=== PATIENT | male | born 1935 | race Caucasian/White ===

== ENCOUNTER → 2017-04-30 | Emergency (ER) | payer MEDICARE, OTHER ==
[~2017-04-30] VITALS: Ht 177.8 cm; Wt 109.2 kg
[2017-04-30 11:14] VITALS: BP 160/79
[2017-04-30 12:27] LABS: CLARITY,URINE SLIGHTLY CLOUDY (Clear); COLOR,URINE YELLOW (Yellow); GLUCOSE, URINE NEGATIVE (Neg); KETONES,URINE NEGATIVE (Neg); LEUKOCYTE ESTERASE ,URINE SMALL (Neg); NITRITES, URINE NEGATIVE (Neg); OCCULT BLOOD,URINE LARGE (Neg); PROTEIN,URINE 30 mg/dl (Neg); UROBILINOGEN,URINE 0.2 E.U/dL (0.2-1.0)
[2017-04-30 12:35] LABS: UA COLLECTION TYPE FOLEY CATH
[2017-04-30 12:36] LABS: BACTERIA,URINE FEW /HPF (Neg); MUCUS STRANDS NONE SEEN /LPF (Neg); RBC,URINE 20-50 /HPF (0-2); SQUAMOUS EPITHELIAL CELL,UR FEW /LPF (FEW)
== END | disposition home or self-care (01) ==
LOC: ER 08:33
DX: R33.9 Retention of urine, unspecified (principal); I25.10 Atherosclerotic heart disease of native coronary artery without angina pectoris; E11.9 Type 2 diabetes mellitus without complications; F17.200 Nicotine dependence, unspecified, uncomplicated; Z95.5 Presence of coronary angioplasty implant and graft; Z98.890 Other specified postprocedural states; Z88.1 Allergy status to other antibiotic agents; Z88.8 Allergy status to other drugs, medicaments and biological substances
CPT/HCPCS: 51702; 81001; 87088; 99285; A4315; A4353

== ENCOUNTER 2017-05-07 07:34 | Emergency (ER) | payer MEDICARE, OTHER ==
[~2017-05-07] VITALS: Ht 177.8 cm; Wt 106.8 kg
[2017-05-07 08:41] VITALS: BP 154/76
[2017-05-09] MEDS ORDERED: ZIPR20CA2 PO (12:29)
[2017-05-09] MEDS ORDERED: CEPH500C5 PO (12:42)
[2017-05-09] MEDS ORDERED: FLO0.4C PO (12:42)
== END 2017-05-07 08:42 | disposition home or self-care (01) ==
LOC: ER 07:35
DX: Z46.6 Encounter for fitting and adjustment of urinary device (principal); I25.10 Atherosclerotic heart disease of native coronary artery without angina pectoris; E11.9 Type 2 diabetes mellitus without complications; F17.210 Nicotine dependence, cigarettes, uncomplicated; Z98.62 Peripheral vascular angioplasty status; Z98.890 Other specified postprocedural states; Z88.8 Allergy status to other drugs, medicaments and biological substances
CPT/HCPCS: 99281; 99284

== ENCOUNTER 2017-05-19 14:47 | Emergency (ER) | payer MEDICARE, OTHER ==
[~2017-05-19] VITALS: Ht 177.8 cm; Wt 109.0 kg
[~2017-05-19 14:47] MED LIST: CEPH500C5 PO; FLO0.4C PO; ZIPR20CA2 PO
[2017-05-19 16:16] VITALS: BP 164/66
[2017-05-19] MEDS ORDERED: FLO0.4C PO (16:17)
== END 2017-05-19 16:24 | disposition home or self-care (01) ==
LOC: ER 14:47
DX: Z00.00 Encounter for general adult medical examination without abnormal findings (principal); E11.9 Type 2 diabetes mellitus without complications; I25.10 Atherosclerotic heart disease of native coronary artery without angina pectoris; Z88.8 Allergy status to other drugs, medicaments and biological substances
CPT/HCPCS: 99283

== ENCOUNTER 2018-11-23 11:26 | Outpatient (CLI) | payer MEDICARE, OTHER ==
[2018-11-23] VITALS (26 sets, daily range): BP systolic 91–154; BP diastolic 57–93
[~2018-11-23 11:26] MED LIST changes: +AMIO100T PO; +AMLO10TA13 PO; +ATOR40TA72 PO; +CEPH250T PO; -CEPH500C5 PO; +CLOP75TA35 PO; +LISI40TA4 PO; +METF-438 PO; +OCUVITE PO; -ZIPR20CA2 PO
== END 2018-11-23 23:59 | disposition home or self-care (01) ==
LOC: CARD DIAG 11:26
PROVIDERS: ATTEND Internal Medicine Cardiovascular Disease
DX: R06.02 Shortness of breath (principal); R42 Dizziness and giddiness; R55 Syncope and collapse; I10 Essential (primary) hypertension; E11.9 Type 2 diabetes mellitus without complications; F17.200 Nicotine dependence, unspecified, uncomplicated
CPT/HCPCS: 93660

== ENCOUNTER 2019-04-02 11:41 | Emergency (ER) | payer MEDICARE, OTHER ==
[~2019-04-02] VITALS: Ht 172.7 cm; Wt 90.0 kg
[2019-04-02 12:08] LABS: CLARITY,URINE TURBID (Clear); COLOR,URINE YELLOW (Yellow); GLUCOSE, URINE NEGATIVE (Neg); KETONES,URINE NEGATIVE (Neg); LEUKOCYTE ESTERASE ,URINE SMALL (Neg); NITRITES, URINE NEGATIVE (Neg); OCCULT BLOOD,URINE LARGE (Neg); PROTEIN,URINE 100 mg/dl (Neg); UROBILINOGEN,URINE 0.2 E.U/dL (0.2-1.0)
[2019-04-02 12:14] LABS: UA COLLECTION TYPE CLN CATCH MIDSTREAM
[2019-04-02 12:19] LABS: MUCUS STRANDS NONE SEEN /LPF (Neg); SQUAMOUS EPITHELIAL CELL,UR MODERATE /LPF (FEW); TRANSITIONAL EPI CELLS,URINE FEW /HPF
[2019-04-02 12:20] LABS: RBC,URINE TNTC /HPF (0-2); WBC CLUMPS,URINE FEW /HPF (NEGATIVE); WBC,URINE TNTC /HPF (0-4)
[2019-04-02 12:21] LABS: BACTERIA,URINE FEW /HPF (Neg)
[2019-04-02] MEDS ORDERED: cephalexin 250mg capsule PO ONE (12:50)
[2019-04-02] MEDS ORDERED: CEPH500C5 PO (13:16)
[2019-04-02 13:56] VITALS: BP 143/65
== END 2019-04-02 13:58 | disposition home or self-care (01) ==
LOC: ER 11:42
DX: N39.0 Urinary tract infection, site not specified (principal); I25.10 Atherosclerotic heart disease of native coronary artery without angina pectoris; E11.9 Type 2 diabetes mellitus without complications; Z98.61 Coronary angioplasty status; Z98.890 Other specified postprocedural states; Z88.8 Allergy status to other drugs, medicaments and biological substances; Z79.2 Long term (current) use of antibiotics; Z79.899 Other long term (current) drug therapy
CPT/HCPCS: 81001; 87077; 87088; 87186; 99283

== ENCOUNTER 2020-01-20 11:23 | Emergency (ER) | payer MEDICARE, OTHER ==
[~2020-01-20] VITALS: Ht 177.8 cm; Wt 112.0 kg
[~2020-01-20 11:23] MED LIST changes: -CEPH250T PO; +CEPH500C5 PO
[2020-01-20 12:32] VITALS: BP 184/76
[2020-01-20] MEDS ORDERED: TETanus/Pertussis (Acell)/Diphther VAC/PF (Tdap-Adult) 0.5ml syringe IMVAC ONE (12:45)
[2020-01-20] MEDS ORDERED: LIDOcaine 1% W/epiNEPHrine 1:200,000 10ml vial IJ ONE (12:45)
[2020-01-20] MEDS ORDERED: LIDOcaine 1% w/epiNEPHrine 1:200,000 30ml vial IJ ONE (12:55)
[2020-01-20] MEDS ORDERED: DOXY100C2 PO (13:41)
== END 2020-01-20 13:57 | disposition home or self-care (01) ==
LOC: ER 11:24
DX: S61.012A Laceration without foreign body of left thumb without damage to nail, initial encounter (principal); S61.002A Unspecified open wound of left thumb without damage to nail, initial encounter; I25.10 Atherosclerotic heart disease of native coronary artery without angina pectoris; E11.9 Type 2 diabetes mellitus without complications; Z98.61 Coronary angioplasty status; Z98.890 Other specified postprocedural states; Z88.8 Allergy status to other drugs, medicaments and biological substances; Z79.899 Other long term (current) drug therapy; X58.XXXA Exposure to other specified factors, initial encounter; Y93.89 Activity, other specified; Y92.89 Other specified places as the place of occurrence of the external cause; Y99.8 Other external cause status
CPT/HCPCS: 64450; 73140; 99283; 99284

== ENCOUNTER 2020-02-25 09:35 | Outpatient (CLI) | payer MEDICARE, OTHER ==
[2020-02-25] MEDS ORDERED: LIDOcaine 2% 5ml jelly ONE (10:23)
== END 2020-02-25 23:59 | disposition home or self-care (01) ==
LOC: WOUND CARE 09:35
PROVIDERS: ATTEND Nurse Practitioner Family
DX: S61.002A Unspecified open wound of left thumb without damage to nail, initial encounter (principal); E11.622 Type 2 diabetes mellitus with other skin ulcer; L98.492 Non-pressure chronic ulcer of skin of other sites with fat layer exposed; I25.10 Atherosclerotic heart disease of native coronary artery without angina pectoris; F17.200 Nicotine dependence, unspecified, uncomplicated; Z98.61 Coronary angioplasty status; Z98.890 Other specified postprocedural states; Z79.899 Other long term (current) drug therapy; Z79.84 Long term (current) use of oral hypoglycemic drugs; X58.XXXA Exposure to other specified factors, initial encounter; Y93.89 Activity, other specified; Y92.89 Other specified places as the place of occurrence of the external cause; Y99.8 Other external cause status
CPT/HCPCS: 82948; 97597

== ENCOUNTER 2020-04-02 16:09 | Outpatient (CLI) | payer MEDICARE, OTHER ==
[2020-04-02 16:46] LABS: TOTAL HEMOGLOBIN 14.6 G/dl (14.0-18.0)
== END 2020-04-02 23:59 | disposition home or self-care (01) ==
LOC: RT 16:09
PROVIDERS: ATTEND Internal Medicine Cardiovascular Disease
DX: R94.2 Abnormal results of pulmonary function studies (principal); I48.91 Unspecified atrial fibrillation; Z79.899 Other long term (current) drug therapy
CPT/HCPCS: 71046; 85018; 94010; 94727; 94729

== ENCOUNTER 2020-09-17 08:51 | Day surgery (SDC) | payer MEDICARE, OTHER ==
[2020-09-16 12:33] LABS: BASOPHILS % (AUTO) 0.5 % (0-1); EOSINOPHILS # (AUTO) 0.2 X10'3 (0-0.9); EOSINOPHILS % (AUTO) 3.2 % (0-6); HEMATOCRIT 39.2 % (42.0-52.0); LYMPHOCYTES # (AUTO) 1.3 X10'3 (1.1-4.8); LYMPHOCYTES % (AUTO) 24.5 % (21-51); MEAN CORPUSCULAR HEMOGLOBIN 30.5 PG (27.0-31.0); MEAN CORPUSCULAR HGB CONC 33.2 g/dL (33.0-36.5); MEAN PLATELET VOLUME 9.5 FL (7.4-10.4); MONOCYTES # (AUTO) 0.5 X10'3 (0-0.9); NEUTROPHILS # (AUTO) 3.3 X10'3 (1.8-7.7); NEUTROPHILS % (AUTO) 62.8 % (42-75); PLATELET COUNT 176 X10'3 (140-440); RED BLOOD COUNT 4.26 X10'6 (4.70-6.10); RED CELL DISTRIBUTION WIDTH 14.8 % (11.5-14.5); WHITE BLOOD COUNT 5.2 X10'3 (4.5-11.0)
[2020-09-16 12:41] LABS: ALBUMIN 3.6 G/DL (3.4-5.0); ANION GAP 10 (8-16); BLOOD UREA NITROGEN 17 MG/DL (7-18); CALCIUM 8.8 MG/DL (8.5-10.1); CHLORIDE 104 MMOL/L (99-107); CREATININE 1.31 MG/DL (0.60-1.10); GLUCOSE 175 MG/DL (70-104); POTASSIUM 4.5 MMOL/L (3.5-5.1); SODIUM 141 MMOL/L (135-145); TOTAL CARBON DIOXIDE 27.3 MMOL/L (24-32); eGFR 52 ML/MIN
[2020-09-16 12:43] LABS: PARTIAL THROMBOPLASTIN TIME 28 SECONDS (22-32)
[2020-09-17] VITALS (14 sets, daily range): BP systolic 120–171; BP diastolic 45–87
[~2020-09-17] VITALS: Ht 177.8 cm; Wt 114.8 kg
[~2020-09-17 08:51] MED LIST changes: -CEPH500C5 PO; +CLOP75TA34 PO; -CLOP75TA35 PO; +LISI40TA13 PO; -LISI40TA4 PO
[2020-09-17] MEDS ORDERED: diphenhydrAMINE 25mg capsule PO PRN (09:05)
[2020-09-17] MEDS ORDERED: sodium bicarbonate (8.4%) inj. 150 ML in dextrose 5%-water 1,000 ML IV ONE ×2 (09:05→09:10)
[2020-09-17] MEDS ORDERED: LORazepam 0.5 MG tablet PO PRN (09:05)
[2020-09-17] MEDS ORDERED: LIDOcaine/PRILOcaine 5gm cream TP ONE (09:10)
[2020-09-17] MEDS ORDERED: RIVA20TA PO (09:31)
[2020-09-17] MEDS ORDERED: LOP25T PO (09:31)
[2020-09-17] MEDS ORDERED: aloe vera PO (09:31)
[2020-09-17] MEDS ORDERED: CRAN405C PEG (09:31)
[2020-09-17] MEDS ORDERED: DUTA0.5C40 PO (09:31)
[2020-09-17] MEDS ORDERED: VIT1CAPS46 PO (09:31)
[2020-09-17] MEDS ORDERED: OMEP-50 PO (09:31)
[2020-09-17] MEDS ORDERED: OMEG1CAP46 PO (09:31)
[2020-09-17] MEDS ORDERED: midazolam 1 mg/ML 2ml injection ONE (09:50)
[2020-09-17] MEDS ORDERED: nitroGLYCERIN-Tridil 50MG/D5W 250 ML IV ONE (09:50)
[2020-09-17] MEDS ORDERED: verapamil 2.5 mg/ml inj IV ONE (09:50)
[2020-09-17] MEDS ORDERED: iohexol 350MG/ML 100ml bottle IV ONE ×3 (09:51→12:21)
[2020-09-17] MEDS ORDERED: fentaNYL/PF 50MCG/1 ML 2ML syringe ONE (09:51)
[2020-09-17] MEDS ORDERED: LIDOcaine 1% (10mg/ml)w/preservative injection 20ml MDV ONE (09:51)
[2020-09-17] MEDS ORDERED: heparin 1,000unit/ml 10ml vial 10 ML ONE (09:51)
[2020-09-17] MEDS ORDERED: iohexol 350 MG/ML 50ML vial IV ONE (09:51)
[2020-09-17] MEDS ORDERED: pneumococcal 23-VAL P-sac vacc 25 mcg/0.5ml vial IMVAC ONE (10:25)
[2020-09-17] MEDS ORDERED: heparin 25,000 UNIT/250ml bag 250 ML IV ONE (11:57)
[2020-09-17] MEDS ORDERED: clopidogrel 300mg tablet ONE (12:38)
[2020-09-17 14:28] LABS: ISTAT HGB ART 12.2 g/dl (14.0-18.0); ISTAT Hct ART 36 %PCV (42-52); ISTAT O2 SATURATION ARTERIAL 98 % (95-98); ISTAT SOURCE ART
[2020-09-17 16:20] LABS: ISTAT Hct MIX 36 %PCV (42-52); ISTAT O2 SATURATION MIX VENOUS 77 % (60-80); ISTAT SOURCE VEN
== END 2020-09-17 19:55 | disposition home or self-care (01) ==
LOC: SSTAY O 08:51
PROVIDERS: ATTEND Internal Medicine Cardiovascular Disease
DX: R94.39 Abnormal result of other cardiovascular function study (principal); I25.10 Atherosclerotic heart disease of native coronary artery without angina pectoris; R55 Syncope and collapse; I35.0 Nonrheumatic aortic (valve) stenosis; I10 Essential (primary) hypertension; E78.5 Hyperlipidemia, unspecified; R06.02 Shortness of breath; R53.83 Other fatigue; I47.1 Supraventricular tachycardia; I48.91 Unspecified atrial fibrillation; E11.9 Type 2 diabetes mellitus without complications
CPT/HCPCS: 36415; 80048; 82803; 82948; 85014; 85025; 85347; 85610; 85730; 93005; 93460; 99152; 99153; C1725; C1751; C1769; C1874; C1894; C9600; J1644; J2001; J2250; J3010; Q0163; Q9967; A4620; A5120; A6258; J3490

== ENCOUNTER 2020-10-25 11:33 | Emergency (ER) | payer MEDICARE, OTHER ==
[~2020-10-25] VITALS: Ht 177.8 cm; Wt 110.9 kg
[~2020-10-25 11:33] MED LIST changes: -AMLO10TA13 PO; -CLOP75TA34 PO; +CRAN405C PEG; +DUTA0.5C40 PO; +LOP25T PO; +OMEG1CAP46 PO; +OMEP-50 PO; +RIVA20TA PO; +VIT1CAPS46 PO; +aloe vera PO
[2020-10-25] MEDS ORDERED: normal saline 1000ML IV soln IVB ONE (12:30)
[2020-10-25 12:50] LABS: BASOPHILS % (AUTO) 0.6 % (0-1); EOSINOPHILS % (AUTO) 0.8 % (0-6); HEMATOCRIT 38.5 % (42.0-52.0); LYMPHOCYTES # (AUTO) 0.8 X10'3 (1.1-4.8); LYMPHOCYTES % (AUTO) 17.4 % (21-51); MEAN CORPUSCULAR HEMOGLOBIN 30.9 PG (27.0-31.0); MEAN CORPUSCULAR HGB CONC 33.9 g/dL (33.0-36.5); MEAN CORPUSCULAR VOLUME 91.2 FL (78-98); MEAN PLATELET VOLUME 9.3 FL (7.4-10.4); MONOCYTES # (AUTO) 0.4 X10'3 (0-0.9); MONOCYTES % (AUTO) 7.7 % (2-12); NEUTROPHILS # (AUTO) 3.6 X10'3 (1.8-7.7); NEUTROPHILS % (AUTO) 73.5 % (42-75); PLATELET COUNT 161 X10'3 (140-440); RED BLOOD COUNT 4.22 X10'6 (4.70-6.10); RED CELL DISTRIBUTION WIDTH 15.5 % (11.5-14.5); WHITE BLOOD COUNT 4.9 X10'3 (4.5-11.0)
[2020-10-25 13:00] LABS: ALANINE AMINOTRANSFERASE 24 U/L (12-78); ALBUMIN 3.6 G/DL (3.4-5.0); ALBUMIN/GLOBULIN RATIO 0.9 (1.1-1.5); ALKALINE PHOSPHATASE 68 IU/L (46-116); ANION GAP 10 (8-16); ASPARTATE AMINO TRANSFERASE 27 U/L (10-37); BILIRUBIN,TOTAL 0.8 MG/DL (0.1-1.0); BLOOD UREA NITROGEN 17 MG/DL (7-18); BUN/CREATININE RATIO 14.2 (5.4-32.0); CALCIUM 8.8 MG/DL (8.5-10.1); CHLORIDE 104 MMOL/L (99-107); GLUCOSE 152 MG/DL (70-104); POTASSIUM 4.4 MMOL/L (3.5-5.1); SODIUM 138 MMOL/L (135-145); TOTAL PROTEIN 7.4 G/DL (6.4-8.2); eGFR 58 ML/MIN
[2020-10-25] MEDS ORDERED: meclizine 12.5mg tablet PO ONE (13:20)
[2020-10-25 13:45] LABS: CLARITY,URINE CLEAR (Clear); COLOR,URINE YELLOW (Yellow); GLUCOSE, URINE NEGATIVE (Neg); KETONES,URINE NEGATIVE (Neg); LEUKOCYTE ESTERASE ,URINE NEGATIVE (Neg); NITRITES, URINE NEGATIVE (Neg); OCCULT BLOOD,URINE MODERATE (Neg); PROTEIN,URINE NEGATIVE (Neg); UROBILINOGEN,URINE 0.2 E.U/dL (0.2-1.0)
[2020-10-25] MEDS ORDERED: normal saline 1000ml 1,000 ML IV STA (13:49)
[2020-10-25 13:58] LABS: UA COLLECTION TYPE CLN CATCH MIDSTREAM
[2020-10-25 14:11] LABS: SQUAMOUS EPITHELIAL CELL,UR FEW /LPF (FEW)
[2020-10-25 14:12] LABS: BACTERIA,URINE FEW /HPF (Neg); WBC,URINE 0-4 /HPF (0-4)
[2020-10-25] MEDS ORDERED: MECL-159 PO (14:53)
[2020-10-25 15:12] VITALS: BP 165/68
== END 2020-10-25 15:14 | disposition home or self-care (01) ==
LOC: ER 11:34
DX: E86.0 Dehydration (principal); R11.2 Nausea with vomiting, unspecified; R51.9 Headache, unspecified; R42 Dizziness and giddiness; I25.10 Atherosclerotic heart disease of native coronary artery without angina pectoris; E11.9 Type 2 diabetes mellitus without complications; Z87.440 Personal history of urinary (tract) infections; F17.210 Nicotine dependence, cigarettes, uncomplicated; Z98.890 Other specified postprocedural states; Z95.5 Presence of coronary angioplasty implant and graft; Z88.8 Allergy status to other drugs, medicaments and biological substances; Z79.899 Other long term (current) drug therapy; Z91.018 Allergy to other foods
CPT/HCPCS: 36415; 70450; 80053; 81001; 82948; 85025; 93005; 96360; 96361; 99285; J7030; J8597

== ENCOUNTER 2021-04-03 07:00 | Emergency (ER) | payer MEDICARE, OTHER ==
[~2021-04-03] VITALS: Ht 177.8 cm; Wt 114.1 kg
[~2021-04-03 07:00] MED LIST changes: +MECL-159 PO
[2021-04-03 08:32] LABS: BASOPHILS % (AUTO) 0.3 % (0-1); EOSINOPHILS # (AUTO) 0.2 X10'3 (0-0.9); EOSINOPHILS % (AUTO) 3.2 % (0-6); HEMATOCRIT 38.6 % (42.0-52.0); LYMPHOCYTES # (AUTO) 0.9 X10'3 (1.1-4.8); LYMPHOCYTES % (AUTO) 12.7 % (21-51); MEAN CORPUSCULAR HGB CONC 33.7 g/dL (33.0-36.5); MEAN CORPUSCULAR VOLUME 92.1 FL (78-98); MEAN PLATELET VOLUME 10.1 FL (7.4-10.4); MONOCYTES # (AUTO) 0.5 X10'3 (0-0.9); MONOCYTES % (AUTO) 7.1 % (2-12); NEUTROPHILS # (AUTO) 5.7 X10'3 (1.8-7.7); NEUTROPHILS % (AUTO) 76.7 % (42-75); PLATELET COUNT 155 X10'3 (140-440); RED CELL DISTRIBUTION WIDTH 15.2 % (11.5-14.5); WHITE BLOOD COUNT 7.4 X10'3 (4.5-11.0)
[2021-04-03 08:50] LABS: ALANINE AMINOTRANSFERASE 24 U/L (12-78); ALBUMIN 3.6 G/DL (3.4-5.0); ALBUMIN/GLOBULIN RATIO 0.9 (1.1-1.5); ALKALINE PHOSPHATASE 67 IU/L (46-116); ANION GAP 10 (8-16); ASPARTATE AMINO TRANSFERASE 18 U/L (10-37); BILIRUBIN,TOTAL 0.6 MG/DL (0.1-1.0); BLOOD UREA NITROGEN 16 MG/DL (7-18); BUN/CREATININE RATIO 13.4 (5.4-32.0); CALCIUM 8.9 MG/DL (8.5-10.1); CHLORIDE 106 MMOL/L (99-107); CREATININE 1.19 MG/DL (0.60-1.10); GLUCOSE 173 MG/DL (70-104); POTASSIUM 3.9 MMOL/L (3.5-5.1); SODIUM 141 MMOL/L (135-145); TOTAL CARBON DIOXIDE 25.3 MMOL/L (24-32); TOTAL PROTEIN 7.4 G/DL (6.4-8.2); eGFR 58 ML/MIN
--- NOTE | 2021-04-03 09:15 | NUR ---
CALLED DR. TRUONG FOR PACEMAKER INFO. PT HAS BIOTRONIC PACEMAKER, CALLED RE[facility] FRANCIS[facility]FOR[facility]
[2021-04-03 09:28] LABS: D-DIMER 0.75 MG/L FEU (0-0.50)
[2021-04-03] MEDS ORDERED: furosemide 10 MG/1 ML 10ml inj IV ONE (09:40)
[2021-04-03 10:12] VITALS: BP 175/74
--- NOTE | 2021-04-03 10:15 | NUR ---
BIOTRONIK TECH AT BEDSIDE
--- NOTE | 2021-04-03 10:30 | NUR ---
PT AMBULATED WITH STEADY GAIT TO/FROM RESTROOM WITHOUT INCIDENT.
[2021-04-03] MEDS ORDERED: FURO-150 PO (11:43)
== END 2021-04-03 12:22 | disposition home or self-care (01) ==
LOC: ER 07:00
DX: I50.9 Heart failure, unspecified (principal); Z20.822 Contact with and (suspected) exposure to COVID-19; I71.4 Abdominal aortic aneurysm, without rupture; R06.02 Shortness of breath; R05.9 Cough, unspecified; I48.91 Unspecified atrial fibrillation; I25.10 Atherosclerotic heart disease of native coronary artery without angina pectoris; E11.9 Type 2 diabetes mellitus without complications; Z87.440 Personal history of urinary (tract) infections; Z95.0 Presence of cardiac pacemaker; Z88.8 Allergy status to other drugs, medicaments and biological substances; Z79.899 Other long term (current) drug therapy
CPT/HCPCS: 36415; 71045; 80053; 83880; 84484; 85025; 85379; 87635; 93005; 93306; 96374; 99285; C9803; J1940

== ENCOUNTER 2021-04-13 15:29 | Emergency (ER) | payer MEDICARE ==
[~2021-04-13] VITALS: Ht 177.8 cm; Wt 114.1 kg
[~2021-04-13 15:29] MED LIST changes: +FURO-150 PO
[2021-04-13 15:49] LABS: CLARITY,URINE BLOODY (Clear); COLOR,URINE RED (Yellow); UA COLLECTION TYPE CLN CATCH MIDSTREAM
[2021-04-13 15:57] LABS: RBC,URINE TNTC /HPF (0-2)
[2021-04-13 16:00] LABS: BACTERIA,URINE NONE SEEN /HPF (Neg); MUCUS STRANDS NONE SEEN /LPF (Neg); SQUAMOUS EPITHELIAL CELL,UR NONE SEEN /LPF (FEW); WBC,URINE 0-4 /HPF (0-4)
[2021-04-13 16:03] LABS: BASOPHILS % (AUTO) 0.6 % (0-1); EOSINOPHILS # (AUTO) 0.1 X10'3 (0-0.9); EOSINOPHILS % (AUTO) 2.2 % (0-6); HEMATOCRIT 39.4 % (42.0-52.0); HEMOGLOBIN 13.3 g/dl (14.0-17.9); LYMPHOCYTES # (AUTO) 1.4 X10'3 (1.1-4.8); LYMPHOCYTES % (AUTO) 23.8 % (21-51); MEAN CORPUSCULAR HEMOGLOBIN 30.8 PG (27.0-31.0); MEAN CORPUSCULAR HGB CONC 33.8 g/dL (33.0-36.5); MEAN CORPUSCULAR VOLUME 91.1 FL (78-98); MEAN PLATELET VOLUME 9.6 FL (7.4-10.4); MONOCYTES # (AUTO) 0.6 X10'3 (0-0.9); NEUTROPHILS # (AUTO) 3.8 X10'3 (1.8-7.7); NEUTROPHILS % (AUTO) 63.4 % (42-75); PLATELET COUNT 172 X10'3 (140-440); RED BLOOD COUNT 4.32 X10'6 (4.70-6.10); RED CELL DISTRIBUTION WIDTH 14.7 % (11.5-14.5); WHITE BLOOD COUNT 5.9 X10'3 (4.5-11.0)
[2021-04-13 16:17] LABS: PARTIAL THROMBOPLASTIN TIME 32 SECONDS (22-32)
[2021-04-13 16:19] LABS: ALANINE AMINOTRANSFERASE 38 U/L (12-78); ALBUMIN 3.7 G/DL (3.4-5.0); ALBUMIN/GLOBULIN RATIO 0.9 (1.1-1.5); ALKALINE PHOSPHATASE 74 IU/L (46-116); ANION GAP 9 (8-16); ASPARTATE AMINO TRANSFERASE 14 U/L (10-37); BILIRUBIN,TOTAL 0.4 MG/DL (0.1-1.0); BLOOD UREA NITROGEN 20 MG/DL (7-18); BUN/CREATININE RATIO 15.9 (5.4-32.0); CALCIUM 9.1 MG/DL (8.5-10.1); CHLORIDE 103 MMOL/L (99-107); CREATININE 1.26 MG/DL (0.60-1.10); GLUCOSE 156 MG/DL (70-104); POTASSIUM 3.9 MMOL/L (3.5-5.1); SODIUM 139 MMOL/L (135-145); TOTAL CARBON DIOXIDE 27.2 MMOL/L (24-32); TOTAL PROTEIN 7.6 G/DL (6.4-8.2); eGFR 55 ML/MIN
[2021-04-13] MEDS ORDERED: iohexol 300mg/ml 100ml inj. ONE (17:21)
[2021-04-13] MEDS ORDERED: MESSAGE TO NURSING PO ONE (18:15)
[2021-04-13 19:40] VITALS: BP 168/79
[2021-04-15] MEDS ORDERED: CLOP75TA15 PO (12:05)
[2021-04-15] MEDS ORDERED: RIVA10TA PO (16:51)
[2021-04-15] MEDS ORDERED: METF-900 PO ×2 (16:51)
[2021-04-15] MEDS ORDERED: LOP12.5T PO (16:53)
== END 2021-04-13 19:43 | disposition home or self-care (01) ==
LOC: ER 15:29
DX: R31.9 Hematuria, unspecified (principal); N40.0 Benign prostatic hyperplasia without lower urinary tract symptoms; I48.91 Unspecified atrial fibrillation; I25.10 Atherosclerotic heart disease of native coronary artery without angina pectoris; E11.9 Type 2 diabetes mellitus without complications; Z87.440 Personal history of urinary (tract) infections; Z79.01 Long term (current) use of anticoagulants; Z95.5 Presence of coronary angioplasty implant and graft; Z95.0 Presence of cardiac pacemaker; Z72.89 Other problems related to lifestyle; Z79.899 Other long term (current) drug therapy; Z88.8 Allergy status to other drugs, medicaments and biological substances
CPT/HCPCS: 36415; 71045; 74178; 80053; 81001; 85025; 85610; 85730; 86885; 86900; 86901; 93005; 99285; Q9967

== ENCOUNTER 2021-04-21 07:54 | Inpatient (IN) | payer MEDICARE ==
[~2021-04-21] VITALS: Ht 175.3 cm; Wt 114.0 kg
[~2021-04-21 07:54] MED LIST changes: +CLOP75TA34 PO; -CRAN405C PEG; -DUTA0.5C40 PO; -FURO-150 PO; +LOP12.5T PO; -LOP25T PO; -MECL-159 PO; -METF-438 PO; +METF-900 PO; -OCUVITE PO; -OMEG1CAP46 PO; -RIVA20TA PO; -VIT1CAPS46 PO; -aloe vera PO
[2021-04-21 08:40] LABS: ALANINE AMINOTRANSFERASE 32 U/L (12-78); ALBUMIN 3.5 G/DL (3.4-5.0); ALBUMIN/GLOBULIN RATIO 0.9 (1.1-1.5); ALKALINE PHOSPHATASE 65 IU/L (46-116); ANION GAP 12 (8-16); ASPARTATE AMINO TRANSFERASE 14 U/L (10-37); BILIRUBIN,TOTAL 0.5 MG/DL (0.1-1.0); BLOOD UREA NITROGEN 25 MG/DL (7-18); CALCIUM 8.9 MG/DL (8.5-10.1); CHLORIDE 105 MMOL/L (99-107); CREATININE 1.56 MG/DL (0.60-1.10); GLUCOSE 180 MG/DL (70-104); POTASSIUM 4.5 MMOL/L (3.5-5.1); SODIUM 139 MMOL/L (135-145); TOTAL CARBON DIOXIDE 22.2 MMOL/L (24-32); TOTAL PROTEIN 7.3 G/DL (6.4-8.2); eGFR 43 ML/MIN
[2021-04-21 08:41] LABS: BASOPHILS % (AUTO) 0.6 % (0-1); EOSINOPHILS # (AUTO) 0.1 X10'3 (0-0.9); EOSINOPHILS % (AUTO) 2.1 % (0-6); HEMATOCRIT 28.8 % (42.0-52.0); HEMOGLOBIN 9.6 g/dl (14.0-17.9); LYMPHOCYTES # (AUTO) 1.3 X10'3 (1.1-4.8); MEAN CORPUSCULAR HEMOGLOBIN 31.1 PG (27.0-31.0); MEAN CORPUSCULAR HGB CONC 33.4 g/dL (33.0-36.5); MEAN CORPUSCULAR VOLUME 93.2 FL (78-98); MEAN PLATELET VOLUME 9.7 FL (7.4-10.4); MONOCYTES # (AUTO) 0.5 X10'3 (0-0.9); MONOCYTES % (AUTO) 8.2 % (2-12); NEUTROPHILS # (AUTO) 4.1 X10'3 (1.8-7.7); NEUTROPHILS % (AUTO) 68.1 % (42-75); PLATELET COUNT 200 X10'3 (140-440); RED BLOOD COUNT 3.09 X10'6 (4.70-6.10); RED CELL DISTRIBUTION WIDTH 15.2 % (11.5-14.5)
[2021-04-21 08:43] LABS: COLOR,URINE RED (Yellow); UA COLLECTION TYPE CLN CATCH MIDSTREAM
[2021-04-21 08:44] LABS: CLARITY,URINE BLOODY (Clear)
[2021-04-21 08:47] LABS: RBC,URINE TNTC /HPF (0-2); SQUAMOUS EPITHELIAL CELL,UR NONE SEEN /LPF (FEW); WBC,URINE NONE SEEN /HPF (0-4)
[2021-04-21 08:54] LABS: BACTERIA,URINE NONE SEEN /HPF (Neg)
[2021-04-21] MEDS ORDERED: iohexol 350 MG/ML 50ML vial IV ONE (11:46)
[2021-04-21] MEDS ORDERED: iohexol 350MG/ML 100ml bottle IV ONE (11:46)
--- NOTE | 2021-04-21 11:55 | NUR ---
PT'S MARQUEZ PLACED, C/O INCREASED DISCOMFORT AND LEAKING. RED TINGED FLUID NOTED ON PT'S SCROTUM. PROVIDER NOTIFIED THAT MARQUEZ WAS ADUSTSTED AND ADDITIONAL 5CC INSTILLED INTO THE BALLOON. PIV PLACED FOR CTA AND PT TAKEN TO CT
[2021-04-21] MEDS ORDERED: HYDROcodone/acetaminophen 10/325mg tab PO ONE (13:05)
[2021-04-21] MEDS ORDERED: morphine 4 MG/ML inj SYRINge IM ONE (14:30)
[2021-04-21] MEDS ORDERED: ondansetron/PF 4mg/2ml inj IV ONE ×2 (14:30→15:15)
[2021-04-21] MEDS ORDERED: normal saline 1000ML IV soln IVB ONE (14:30)
[2021-04-21] MEDS ORDERED: morphine 4 MG/ML inj SYRINge IV ONE ×2 (14:35→15:15)
--- NOTE | 2021-04-21 15:22 | NUR ---
pt f/c changed to a three way for cont irragation f/c placed drained about 50 ml of bloody urine and then stopped placed on irragation started irragtion but had no return stopped irration and tried to flush drain but still no return of any more urine or fluid nicolette hopkins notifed
[2021-04-21] MEDS ORDERED: CLOP75TA33 PO (17:08)
[2021-04-21] MEDS ORDERED: HYDROcodone/acetaminophen 5mg/325mg tablet PO PRN (18:10)
[2021-04-21] MEDS ORDERED: HYDROcodone/acetaminophen 10/325mg tab PO PRN (18:10)
[2021-04-21] MEDS ORDERED: dextrose ORAL solution 15 GM/59 ML bottle PO PRN ×2 (18:10)
[2021-04-21] MEDS ORDERED: dextrose 50%-water 50ml dispensing syringe IV PRN ×2 (18:10)
[2021-04-21] MEDS ORDERED: morphine 2 MG/ML inj. syringe IV PRN ×2 (18:10)
[2021-04-21] MEDS ORDERED: acetaminophen 650mg rectal suppository RC PRN (18:10)
[2021-04-21] MEDS ORDERED: bisacodyl 10mg suppository rectal RC PRN (18:10)
[2021-04-21] MEDS ORDERED: potassium CL 10mEq/100ml bag 100 ML IV PRN (18:10)
[2021-04-21] MEDS ORDERED: magnesium 2GM in 50ml NS 50 ML IV PRN (18:10)
[2021-04-21] MEDS ORDERED: insulin Lispro (HumaLOG) vial - multi-dose SQ SCH (18:10)
[2021-04-21] MEDS ORDERED: magnesium Cl slow-release 64mg tablet PO PRN (18:10)
[2021-04-21] MEDS ORDERED: potassium Cl 20 mEq SR tablet PO PRN ×2 (18:10)
[2021-04-21] MEDS ORDERED: mag hydrox/Alum hydrox/simeth 30ml oral suspension PO PRN (18:10)
[2021-04-21] MEDS ORDERED: magnesium 4gm in 100ml NS 100 ML IV PRN (18:10)
[2021-04-21] MEDS: normal saline 1000ml 1,000 ML IV SCH ×2 (18:10→21:15)
[2021-04-21] MEDS ORDERED: MESSAGE TO PHARMACY PO ONE (18:10)
[2021-04-21] MEDS ORDERED: diphenhydrAMINE 25mg capsule PO PRN (18:10)
[2021-04-21] MEDS ORDERED: magnesium hydroxide 30ml (MOM) UD suspension PO PRN (18:10)
[2021-04-21] MEDS ORDERED: ondansetron/PF 4mg/2ml inj IV PRN (18:10)
[2021-04-21] MEDS ORDERED: glucagon, human recombinant 1mg kit SUBCUT PRN (18:10)
[2021-04-21] MEDS ORDERED: acetaminophen 325mg tablet PO PRN ×2 (18:10)
[2021-04-21 18:58] LABS: HEMATOCRIT 23.9 % (42.0-52.0); HEMOGLOBIN 8.1 g/dl (14.0-17.9); MEAN CORPUSCULAR HEMOGLOBIN 31.2 PG (27.0-31.0); MEAN CORPUSCULAR HGB CONC 33.9 g/dL (33.0-36.5); MEAN PLATELET VOLUME 9.4 FL (7.4-10.4); PLATELET COUNT 192 X10'3 (140-440); RED BLOOD COUNT 2.59 X10'6 (4.70-6.10); RED CELL DISTRIBUTION WIDTH 14.8 % (11.5-14.5); WHITE BLOOD COUNT 6.9 X10'3 (4.5-11.0)
--- NOTE | 2021-04-21 19:19 | NUR ---
f/c clotted off f/c flushed and removed severel small clots f/c draining again
[2021-04-21] MEDS: K and/or MAG REPLACEMENT MC SCH (20:00)
[2021-04-21] MEDS: metoprolol tartrate 25mg tablet PO SCH (20:22)
[2021-04-21] MEDS: tamsulosin 0.4mg capsule PO SCH (20:22)
[2021-04-21] MEDS: docusate sod 100mg capsule PO SCH (20:22)
[2021-04-21] MEDS: atorvastatin 20mg tablet PO SCH (20:22)
--- NOTE | 2021-04-21 20:50 | NUR ---
Patient in room ED 13. I have received report from BRENDA Jerry and had the opportunity to ask questions and assume patient care. He states he received hand irrigation order from Dr. Soto and will put the order in.
[2021-04-21] MEDS: insulin glargine (Lantus) pen - multi-dose SQ SCH (21:00)
--- NOTE | 2021-04-21 21:28 | NUR ---
Patient arrived to floor via gurney, was able to scoot from gurney to bed. Pt catheter is a light lucio red, two bags are hung, both are half full. The catheter is leaking and the pads under the patient were saturated. Cleaned up the patient and got him up to the bedside commode, and catheter began leaking out quite a bit again. Will assess for clot once patient is back to bed.
[2021-04-21 22:00] VITALS: BP_SYST 102; BP_SYST 83; BP_SYST 88; BP_DIAS 30; BP_DIAS 50
[2021-04-22] VITALS (17 sets, daily range): BP systolic 100–146; BP diastolic 32–54
[2021-04-22 01:07] LABS: HEMATOCRIT 24.1 % (42.0-52.0); HEMOGLOBIN 8.3 g/dl (14.0-17.9); MEAN CORPUSCULAR HEMOGLOBIN 31.8 PG (27.0-31.0); MEAN CORPUSCULAR HGB CONC 34.5 g/dL (33.0-36.5); MEAN CORPUSCULAR VOLUME 92.1 FL (78-98); MEAN PLATELET VOLUME 10.1 FL (7.4-10.4); PLATELET COUNT 200 X10'3 (140-440); RED BLOOD COUNT 2.61 X10'6 (4.70-6.10); WHITE BLOOD COUNT 8.7 X10'3 (4.5-11.0)
--- NOTE | 2021-04-22 06:29 | NUR ---
Problems reprioritized. Patient report given, questions answered & plan of care reviewed with BRENDA Lipscomb.
[2021-04-22 06:37] LABS: BASOPHILS % (AUTO) 0.6 % (0-1); EOSINOPHILS % (AUTO) 0.3 % (0-6); HEMATOCRIT 22.3 % (42.0-52.0); HEMOGLOBIN 7.6 g/dl (14.0-17.9); LYMPHOCYTES # (AUTO) 1.3 X10'3 (1.1-4.8); LYMPHOCYTES % (AUTO) 19.4 % (21-51); MEAN CORPUSCULAR HEMOGLOBIN 31.9 PG (27.0-31.0); MEAN CORPUSCULAR HGB CONC 34.3 g/dL (33.0-36.5); MEAN PLATELET VOLUME 9.5 FL (7.4-10.4); MONOCYTES # (AUTO) 0.6 X10'3 (0-0.9); MONOCYTES % (AUTO) 8.4 % (2-12); NEUTROPHILS # (AUTO) 4.8 X10'3 (1.8-7.7); NEUTROPHILS % (AUTO) 71.3 % (42-75); PLATELET COUNT 196 X10'3 (140-440); RED CELL DISTRIBUTION WIDTH 15.2 % (11.5-14.5); WHITE BLOOD COUNT 6.7 X10'3 (4.5-11.0)
[2021-04-22 06:43] LABS: APTT 26 SECONDS (22-32)
[2021-04-22 07:01] LABS: ALANINE AMINOTRANSFERASE 23 U/L (12-78); ALBUMIN/GLOBULIN RATIO 0.9 (1.1-1.5); ALKALINE PHOSPHATASE 52 IU/L (46-116); ANION GAP 9 (8-16); ASPARTATE AMINO TRANSFERASE 13 U/L (10-37); BILIRUBIN,TOTAL 0.5 MG/DL (0.1-1.0); BLOOD UREA NITROGEN 29 MG/DL (7-18); BUN/CREATININE RATIO 16.1 (5.4-32.0); CALCIUM 8.4 MG/DL (8.5-10.1); CHLORIDE 109 MMOL/L (99-107); GLUCOSE 142 MG/DL (70-104); MAGNESIUM 2.3 MG/DL (1.5-2.4); PHOSPHORUS 5.6 MG/DL (2.3-4.5); POTASSIUM 5.3 MMOL/L (3.5-5.1); SODIUM 141 MMOL/L (135-145); TOTAL PROTEIN 6.2 G/DL (6.4-8.2); eGFR 36 ML/MIN
[2021-04-22] MEDS: amiodarone 200mg tablet PO SCH (07:18)
[2021-04-22] MEDS: docusate sod 100mg capsule PO SCH ×2 (07:18→20:14)
[2021-04-22] MEDS: metoprolol tartrate 25mg tablet PO SCH ×2 (07:20→20:18)
[2021-04-22] MEDS: pantoprazole 40mg Tablet.DR PO SCH (07:20)
[2021-04-22] MEDS: lisinopril 20mg tablet PO SCH (07:22)
[2021-04-22] MEDS: normal saline 1000ml 1,000 ML IV SCH ×2 (07:22→19:29)
[2021-04-22] MEDS: K and/or MAG REPLACEMENT MC SCH ×2 (08:00→20:00)
--- NOTE | 2021-04-22 09:32 | NUR ---
Diabetes consult: Noted A1C 6.3 DM education not indicated at this time. Will continue to monitor. Addendum: 04/22/21 at [address] Amended: Links added.
[2021-04-22] MEDS ORDERED: meperidine/PF 25mg/ml syringe IV PRN ×3 (11:35)
[2021-04-22] MEDS ORDERED: proCHLORperazine 10 MG/2 ml inj IV PRN (11:35)
[2021-04-22] MEDS ORDERED: ondansetron/PF 4mg/2ml inj IV PRN (11:35)
[2021-04-22] MEDS ORDERED: morphine 2 MG/ML inj. syringe IV PRN (11:35)
[2021-04-22] MEDS ORDERED: morphine 4 MG/ML inj SYRINge IV PRN (11:35)
[2021-04-22] MEDS ORDERED: ringers solution, lacted 1,000 ML IV SCH (11:35)
[2021-04-22 12:17] LABS: HEMOGLOBIN 7.1 g/dl (14.0-17.9); MEAN CORPUSCULAR HEMOGLOBIN 31.6 PG (27.0-31.0); MEAN CORPUSCULAR HGB CONC 34.3 g/dL (33.0-36.5); MEAN CORPUSCULAR VOLUME 92.2 FL (78-98); MEAN PLATELET VOLUME 9.2 FL (7.4-10.4); PLATELET COUNT 182 X10'3 (140-440); RED BLOOD COUNT 2.25 X10'6 (4.70-6.10); WHITE BLOOD COUNT 5.7 X10'3 (4.5-11.0)
[2021-04-22 12:20] LABS: HEMATOCRIT 20.7 % (42.0-52.0)
[2021-04-22] MEDS ORDERED: sevoflurane 250ml liquid IH ONE (12:35)
[2021-04-22] MEDS ORDERED: fentaNYL/PF 50MCG/1 ML 2ML syringe ONE (12:54)
[2021-04-22] MEDS ORDERED: midazolam 1 mg/ML 2ml injection ONE (12:54)
[2021-04-22] MEDS ORDERED: LIDOcaine 2% (20mg/ml) 5ml vial ONE (13:02)
[2021-04-22] MEDS ORDERED: propofol inj 20 ML IV ONE (13:02)
[2021-04-22] MEDS ORDERED: ceFAZolin 1000mg inj ONE ×2 (13:31)
--- NOTE | 2021-04-22 13:43 | NUR ---
Received from OR via BED, accompanied by Anesthesiologist DR SALINAS and report given by Anesthesiologist. PT DROWSY, NO S/S OF DISTRESS/DISCOMFORT. VSS. MARQUEZ CATHETER TO GRAVITY DRAINAGE W/[id number]-[id number]' URINE IN DRAINAGE BAG. Addendum: 04/22/21 at 1419 by Tasha Shaw RN Amended: Links added.
--- NOTE | 2021-04-22 14:33 | NUR ---
Report called to receiving nurse. Transferred via BED BY RN AND LARRY, JAGDEEP Manzanaress, PT WAS PLACED ON 02 AT 2 LITERS, NURSES AIDE AT BEDSIDE TO RECEIVE PT. Special Issues communicated to receiving nurse. YES. Addendum: 04/22/21 at 1453 by Tasha Shaw RN Amended: Links added.
--- NOTE | 2021-04-22 18:32 | NUR ---
Problems reprioritized. Patient report given, questions answered & plan of care reviewed with beau zimmerman.
--- NOTE | 2021-04-22 18:59 | NUR ---
Patient in room [facility]. I have received report from BRENDA Lipscomb and had the opportunity to ask questions and assume patient care.
[2021-04-22] MEDS: tamsulosin 0.4mg capsule PO SCH (20:15)
[2021-04-22] MEDS: atorvastatin 20mg tablet PO SCH (20:17)
[2021-04-22] MEDS: insulin glargine (Lantus) pen - multi-dose SQ SCH (21:00)
[2021-04-23 04:42] VITALS: BP 100/54
[2021-04-23 06:37] LABS: BASOPHILS % (AUTO) 0.7 % (0-1); EOSINOPHILS # (AUTO) 0.1 X10'3 (0-0.9); EOSINOPHILS % (AUTO) 2.7 % (0-6); HEMATOCRIT 24.4 % (42.0-52.0); HEMOGLOBIN 8.5 g/dl (14.0-17.9); LYMPHOCYTES # (AUTO) 1.1 X10'3 (1.1-4.8); LYMPHOCYTES % (AUTO) 20.5 % (21-51); MEAN CORPUSCULAR HEMOGLOBIN 31.4 PG (27.0-31.0); MEAN CORPUSCULAR HGB CONC 34.8 g/dL (33.0-36.5); MEAN CORPUSCULAR VOLUME 90.4 FL (78-98); MEAN PLATELET VOLUME 9.4 FL (7.4-10.4); MONOCYTES # (AUTO) 0.5 X10'3 (0-0.9); MONOCYTES % (AUTO) 8.9 % (2-12); NEUTROPHILS # (AUTO) 3.5 X10'3 (1.8-7.7); NEUTROPHILS % (AUTO) 67.2 % (42-75); PLATELET COUNT 150 X10'3 (140-440); RED CELL DISTRIBUTION WIDTH 15.3 % (11.5-14.5); WHITE BLOOD COUNT 5.3 X10'3 (4.5-11.0)
--- NOTE | 2021-04-23 06:37 | NUR ---
Problems reprioritized. Patient report given, questions answered & plan of care reviewed with BRENDA Quijano.
[2021-04-23 06:48] LABS: ALANINE AMINOTRANSFERASE 13 U/L (12-78); ALBUMIN 2.6 G/DL (3.4-5.0); ALBUMIN/GLOBULIN RATIO 0.9 (1.1-1.5); ALKALINE PHOSPHATASE 49 IU/L (46-116); ANION GAP 7 (8-16); ASPARTATE AMINO TRANSFERASE 10 U/L (10-37); BILIRUBIN,TOTAL 0.7 MG/DL (0.1-1.0); BLOOD UREA NITROGEN 20 MG/DL (7-18); BUN/CREATININE RATIO 14.5 (5.4-32.0); CHLORIDE 111 MMOL/L (99-107); CREATININE 1.38 MG/DL (0.60-1.10); GLUCOSE 98 MG/DL (70-104); MAGNESIUM 2.2 MG/DL (1.5-2.4); POTASSIUM 4.6 MMOL/L (3.5-5.1); SODIUM 141 MMOL/L (135-145); TOTAL CARBON DIOXIDE 22.7 MMOL/L (24-32); TOTAL PROTEIN 5.6 G/DL (6.4-8.2); eGFR 49 ML/MIN
[2021-04-23 07:00] VITALS: BP 120/52
[2021-04-23] MEDS: normal saline 1000ml 1,000 ML IV SCH (07:41)
[2021-04-23] MEDS: docusate sod 100mg capsule PO SCH (07:42)
[2021-04-23] MEDS: lisinopril 20mg tablet PO SCH (07:42)
[2021-04-23] MEDS: amiodarone 200mg tablet PO SCH (07:42)
[2021-04-23] MEDS: pantoprazole 40mg Tablet.DR PO SCH (07:42)
[2021-04-23] MEDS: metoprolol tartrate 25mg tablet PO SCH (07:42)
[2021-04-23 11:00] VITALS: BP 128/50
--- NOTE | 2021-04-23 11:25 | NUR ---
pt returned page to be made aware of d/c pending PT eval. pt to be seen early afternoon
--- NOTE | 2021-04-23 14:03 | NUR ---
message to dr beard "PAGER ID: [phone] MESSAGE: pt passed PT and dr fall stated that he was calling regarding f/u and anticoag restart 360 [facility] ~anthony rn [id number]"
--- NOTE | 2021-04-23 14:06 | NUR ---
Raquel Lainez CM made aware of d/c. CM to order HHC
== END 2021-04-23 17:40 | disposition home health service (06) | DRG 669 ==
LOC: ER 07:55 → ED HOLD 18:16 → SUR 3N 21:15
PROVIDERS: ADMIT Family Medicine; ATTEND Family Medicine
PROC: B4201ZZ Computerized Tomography (CT Scan) of Abdominal Aorta using Low Osmolar Contrast (ICD-10-PCS; 2021-04-21)
PROC: B4241ZZ Computerized Tomography (CT Scan) of Superior Mesenteric Artery using Low Osmolar Contrast (ICD-10-PCS; 2021-04-21)
PROC: B4281ZZ Computerized Tomography (CT Scan) of Bilateral Renal Arteries using Low Osmolar Contrast (ICD-10-PCS; 2021-04-21)
PROC: B42C1ZZ Computerized Tomography (CT Scan) of Pelvic Arteries using Low Osmolar Contrast (ICD-10-PCS; 2021-04-21)
PROC: B42H1ZZ Computerized Tomography (CT Scan) of Bilateral Lower Extremity Arteries using Low Osmolar Contrast (ICD-10-PCS; 2021-04-21)
PROC: B4211ZZ Computerized Tomography (CT Scan) of Celiac Artery using Low Osmolar Contrast (ICD-10-PCS; 2021-04-21)
PROC: B42H1ZZ Computerized Tomography (CT Scan) of Bilateral Lower Extremity Arteries using Low Osmolar Contrast (ICD-10-PCS; 2021-04-21)
PROC: 0T2BX0Z Change Drainage Device in Bladder, External Approach (ICD-10-PCS; 2021-04-21)
PROC: 0TCB8ZZ Extirpation of Matter from Bladder, Via Natural or Artificial Opening Endoscopic (ICD-10-PCS; 2021-04-22)
PROC: 30233N1 Transfusion of Nonautologous Red Blood Cells into Peripheral Vein, Percutaneous Approach (ICD-10-PCS; 2021-04-22)
PROC: 0TBB8ZZ Excision of Bladder, Via Natural or Artificial Opening Endoscopic (ICD-10-PCS; principal; 2021-04-22 12:35)
DX: C67.9 Malignant neoplasm of bladder, unspecified (principal); N02.9 Recurrent and persistent hematuria with unspecified morphologic changes; N32.89 Other specified disorders of bladder; D64.9 Anemia, unspecified; E11.51 Type 2 diabetes mellitus with diabetic peripheral angiopathy without gangrene; I48.0 Paroxysmal atrial fibrillation; E78.5 Hyperlipidemia, unspecified; Z20.822 Contact with and (suspected) exposure to COVID-19; F17.290 Nicotine dependence, other tobacco product, uncomplicated; I10 Essential (primary) hypertension; I25.10 Atherosclerotic heart disease of native coronary artery without angina pectoris; I35.0 Nonrheumatic aortic (valve) stenosis; N40.0 Benign prostatic hyperplasia without lower urinary tract symptoms; Z95.0 Presence of cardiac pacemaker; Z88.8 Allergy status to other drugs, medicaments and biological substances; Z87.440 Personal history of urinary (tract) infections
CPT/HCPCS: 36415; 36430; 75635; 80053; 81001; 82948; 83735; 84100; 85025; 85027; 85610; 85730; 86885; 86900; 86901; 86920; 87081; 87635; 88305; 97110; 97161; 99285; A4346; A4618; A7000; G0378; J0690; J1815; J2250; J2270; J2405; J2704; J3010; J3490; J7030; J7120; P9016; Q9967

== ENCOUNTER 2021-05-05 21:52 | Emergency (ER) | payer MEDICARE ==
[~2021-05-05] VITALS: Ht 175.3 cm; Wt 109.1 kg
[~2021-05-05 21:52] MED LIST changes: -CLOP75TA34 PO; +epiNEPHrine 0.1mg/ml 10ml syringe ONE; +sodium bicarbonate (8.4%) 1 mEq/ml syringe ONE
--- NOTE | 2021-05-05 22:55 | NUR ---
Patient was brought in by EMS at 2153. EMS had reportedly attempted three shocks, 300mg of Amiodarone, three rounds of epinephrine given, and came in with respirations being bag valved. Intraosseus access had been established in the left fuentes with normal saline being pressure bagged in. Compressions and bagging continued by hospital staff from EMS handoff. 2154: Bicarb and epinephrine were given. Compressions continued. 2155: Pulse check completed. Patient found to have pulseless electrical activity. Patient intubated at this time at 25 to the teeth for placement. 2156: Compressions resumed. 2199: Epinephrine was given. 2200: Pulse check completed. Patient was found to have no detectable pulse. Ultrasound of heart completed and found to have no cardiac activity. Time of called at this time (2200).
== END 2021-05-06 06:54 ==
LOC: ER 21:52
DX: I46.9 Cardiac arrest, cause unspecified (principal); I35.0 Nonrheumatic aortic (valve) stenosis; I48.91 Unspecified atrial fibrillation; I25.10 Atherosclerotic heart disease of native coronary artery without angina pectoris; E11.9 Type 2 diabetes mellitus without complications; Z87.440 Personal history of urinary (tract) infections; Z95.5 Presence of coronary angioplasty implant and graft; Z79.899 Other long term (current) drug therapy
CPT/HCPCS: 31500; 92950; 94799; 99285; J0171; J3490